=== PATIENT | female | born 1980 | race Caucasian/White ===

== ENCOUNTER → 2018-09-04 | Outpatient (CLI) | payer OTHER | LOC: BMCIMAGING 11:00 | PROVIDERS: ATTEND Family Medicine | DX: M79.604 Pain in right leg (principal); I80.01 Phlebitis and thrombophlebitis of superficial vessels of right lower extremity; Z86.711 Personal history of pulmonary embolism ==

== ENCOUNTER → 2018-09-10 | Outpatient (CLI) | payer OTHER | LOC: BMCIMAGING 13:19 ==